=== PATIENT | male | born 1970 | race Caucasian/White ===

== ENCOUNTER 2023-01-16 11:30 | Inpatient (IN) | payer OTHER ==
[~2023-01-16] VITALS: Ht 188 cm; Wt 143.6 kg
[2023-01-16 11:59] LABS: COLLECTION METHOD CLEAN CATCH
[2023-01-16 12:03] LABS: BASO % 0.5 % (0.0-2.0); EOS # 0.1 K/mm3 (0.0-0.7); EOS % 1.3 % (0.0-4.0); GRAN # 6.7 K/mm3 (1.4-6.5); GRAN % 76.3 % (42.2-75.2); HEMATOCRIT 39.3 % (42.0-52.0); HEMOGLOBIN 13.1 g/dl (13.5-18.0); LYMPH # 1.2 K/mm3 (1.2-3.4); LYMPH % 13.2 % (20.0-51.0); MEAN CELL VOLUME 85 fl (80.0-100.0); MEAN CORPUSCULAR HEMOGLOBIN 28 pg (27-31); MEAN CORPUSCULAR HGB CONC 33 g/dl (33.0-37.0); MEAN PLATELET VOLUME 9.3 fl (7.4-10.4); MONO # 0.7 K/mm3 (0.1-0.6); MONO % 8.1 % (1.7-9.3); PLATELET COUNT 449 K/mm3 (130-400); RED BLOOD COUNT 4.62 M/mm3 (4.20-5.60); REDCELL DISTRIBUTION WIDTH-CV 12.3 % (11.5-14.5)
[2023-01-16 12:08] LABS: MUCOUS Present (NOT PRESENT); SQUAMOUS EPITHELIAL None Seen /hpf (0-10); URINE BACTERIA Rare /hpf (NONE SEEN); URINE RBC 20-50 /hpf (0-2)
[2023-01-16 12:09] LABS: URINE APPEARANCE Clear (CLEAR/HAZY); URINE BLOOD 2+ (NEGATIVE); URINE COLOR Yellow (YELLOW); URINE GLUCOSE Negative (NEGATIVE); URINE KETONE Negative (NEGATIVE); URINE NITRATE Negative (NEGATIVE); URINE PROTEIN(semi-quant) 3+ (NEGATIVE); URINE UROBILINOGEN 0.2 E.U/dL (0.2-1.0)
[2023-01-16 12:21] LABS: INR 1.4 (0.8-3.0); PROTHROMBIN TIME 15.6 SECONDS (9.7-12.8)
[2023-01-16 12:24] LABS: ALBUMIN 3.5 gm/dL (3.5-5.0); BILIRUBIN,TOTAL 0.3 mg/dL (0.2-1.2); CALCIUM 10.1 mg/dL (8.4-10.2); CREATININE, serum 2.11 mg/dL (0.72-1.25); POTASSIUM 4.6 mmol/L (3.5-4.5); TOTAL PROTEIN 8.5 gm/dL (6.2-8.1)
[2023-01-16] MEDS ORDERED: TYLENOL 500MG500 MG PO (16:43)
[2023-01-16] MEDS ORDERED: LEVAQUIN 750MG750 M1 PO (16:43)
[2023-01-16] MEDS ORDERED: PRINIVIL40 MG PO (16:44)
[2023-01-16] MEDS ORDERED: NORVASC 10MG10 MG PO (16:44)
[2023-01-16] MEDS ORDERED: TOPROL XL 50MG50 MG PO (16:45)
[2023-01-16] MEDS ORDERED: GAS RELIEF 8080 MG PO (16:45)
[2023-01-16] MEDS ORDERED: NICODERM C7 MG/PATCH TD (16:45)
[2023-01-16 20:10] VITALS: BP 124/72; PULSE 76; TEMP 98.8
[2023-01-16 23:15] VITALS: BP 111/74; PULSE 79; TEMP 98.2
--- NOTE | 2023-01-17 02:28 | NUR ---
PT ARRIVED TO THE FLOOR AROUND 2009. PT RESTING IN BED COMFORTABLY, VITAL SIGNS WITHIN NORMAL LIMITS, PT DENIES ANY PAIN AT THIS TIME. ASSESSMENT QUESTIONS AND PHYSICAL ASSESSMENT ALONG WITH ADMISSION QUESTIONS COMPLETE AT THIS TIME, ( CHARTED LATER ) PT IS ALERT AND ORIENTED, PT DOES NOT APPEAR TO HAVE ANY SKIN BREAKDOWN OR OPEN WOUNDS. PTS BELLY IS FIRM AND PT DOES HAVE SOME TENDERNESS TO TOUCH. BUT DOES HOWEVER DENY ANY PAIN AT THIS TIME. ROMERO CATH IN PLACE, PLACED IN ER. NO NEW REQUESTS AT THIS TIME, PT RESTING COMFORTABLY IN BED.
[2023-01-17 04:07] VITALS: BP 118/71; PULSE 79; TEMP 98.4
[2023-01-17 07:02] LABS: BASO % 0.6 % (0.0-2.0); EOS # 0.2 K/mm3 (0.0-0.7); EOS % 2.3 % (0.0-4.0); GRAN # 4.7 K/mm3 (1.4-6.5); GRAN % 69.7 % (42.2-75.2); LYMPH # 1.1 K/mm3 (1.2-3.4); LYMPH % 16.8 % (20.0-51.0); MEAN CELL VOLUME 86 fl (80.0-100.0); MEAN CORPUSCULAR HGB CONC 33 g/dl (33.0-37.0); MEAN PLATELET VOLUME 9.7 fl (7.4-10.4); MONO # 0.7 K/mm3 (0.1-0.6); MONO % 10.1 % (1.7-9.3); REDCELL DISTRIBUTION WIDTH-CV 12.4 % (11.5-14.5)
[2023-01-17 07:12] LABS: ALBUMIN 2.7 gm/dL (3.5-5.0); CALCIUM 8.8 mg/dL (8.4-10.2); CREATININE, serum 1.95 mg/dL (0.72-1.25); MAGNESIUM 2.1 mg/dL (1.6-2.6); PHOSPHOROUS 3.3 mg/dL (2.3-4.7); POTASSIUM 4.3 mmol/L (3.5-4.5)
[2023-01-17 07:16] LABS: HEMATOCRIT 31.7 % (42.0-52.0); HEMOGLOBIN 10.6 g/dl (13.5-18.0); MEAN CORPUSCULAR HEMOGLOBIN 29 pg (27-31); PLATELET COUNT 340 K/mm3 (130-400)
[2023-01-17 07:24] VITALS: BP 120/70; PULSE 76; TEMP 98.5
[2023-01-17 11:32] VITALS: BP 138/87; PULSE 74; TEMP 98.6
--- NOTE | 2023-01-17 12:23 | NUR ---
Initial visit: Melter Assistant went by room on rounds. Pt was resting and content with family in the room. Pt appreciated the visit. Pt has no needs right now. Melter Assistant will follow up as needed.
--- NOTE | 2023-01-17 14:56 | NUR ---
Journeyman Pipefitter met with patient to discuss discharge planning. Patient lives outside of [place], [place] with his Kirsty Calderon (ph#[phone]) who is at bedside. Patient is currently seeing Dr. Martinez for primary care, however patient and Kirsty Calderon are not very happy with Dr. Martinez's care and may be looking at changing providers. Patient is normally independent with ADLS and plans to return home at time of discharge. OT worked with patient and recommend home. Discharge Plan: Home
[2023-01-17 15:34] VITALS: BP 132/81; PULSE 75; TEMP 98.2
[2023-01-17 20:06] VITALS: BP 125/77; PULSE 77; TEMP 98.6
--- NOTE | 2023-01-17 20:53 | NUR ---
pt resting in bed. denies pain. lópez to felicia rodriguez yellow urine output. 24 hr urine started at 1600, urine on ice. fluids and abx infusing into right ac. pt requesting nicotine patch, applied to YONATHAN. pt denies any other needs. call light in reach.
[2023-01-18] VITALS (7 sets, daily range): BP systolic 123–136; BP diastolic 64–86; PULSE 66–90; TEMP 97.6–98.5
[2023-01-18 06:56] LABS: BASO % 0.3 % (0.0-2.0); EOS # 0.2 K/mm3 (0.0-0.7); EOS % 3.6 % (0.0-4.0); GRAN # 4.2 K/mm3 (1.4-6.5); GRAN % 67.1 % (42.2-75.2); HEMOGLOBIN 10.9 g/dl (13.5-18.0); LYMPH # 1.1 K/mm3 (1.2-3.4); LYMPH % 17.6 % (20.0-51.0); MEAN CELL VOLUME 86 fl (80.0-100.0); MEAN CORPUSCULAR HEMOGLOBIN 29 pg (27-31); MEAN CORPUSCULAR HGB CONC 34 g/dl (33.0-37.0); MEAN PLATELET VOLUME 9.7 fl (7.4-10.4); MONO # 0.7 K/mm3 (0.1-0.6); MONO % 10.8 % (1.7-9.3); PLATELET COUNT 347 K/mm3 (130-400); RED BLOOD COUNT 3.73 M/mm3 (4.20-5.60); REDCELL DISTRIBUTION WIDTH-CV 12.5 % (11.5-14.5)
[2023-01-18 07:01] LABS: HEMATOCRIT 32.2 % (42.0-52.0)
[2023-01-18 07:10] LABS: ALBUMIN 2.6 gm/dL (3.5-5.0); CALCIUM 8.9 mg/dL (8.4-10.2); CREATININE, serum 1.95 mg/dL (0.72-1.25); MAGNESIUM 2.1 mg/dL (1.6-2.6); PHOSPHOROUS 3.9 mg/dL (2.3-4.7); POTASSIUM 4.1 mmol/L (3.5-4.5)
[2023-01-18 08:38] LABS: KAPPA FREE LIGHT CHAIN-SERUM 56.53 mg/L (()); KAPPA LAMBDA RATIO 1.52 ratio (()); LAMDA FREE LIGHT CHAIN SERUM 37.26 mg/L (())
--- NOTE | 2023-01-18 09:04 | NUR ---
PATIENT REPORTS NO LABS HAVE BEEN DRAWN IN APPROXIMATELY 8+ YEARS. NO BASELINE CREATININE TO GO FROM.
--- NOTE | 2023-01-18 09:07 | NUR ---
PATIENT ALERT AND ORIENTED X4. VSS. PATIENT HERE FOR TESTICULAR MASS/URINARY RETENTION. ROMERO TO DD WITH YELLOW OUTPUT. 24 HOUR URINE RUNNING. URINE ON ICE. ASSESSMENT PERFORMED. AM MEDS ADMINISTERED. SLOW ZOSYN AND NS RUNNING AT 100/HOUR IN RIGHT AC. PATIENT RESTING IN BED WITH CALL LIGHT NEAR.
--- NOTE | 2023-01-18 21:39 | NUR ---
Patient doing crossword puzzle, head to toe assessment done, denies pain or discomfort, still with lópez catheter draining well with clear yellow urine, denies further needs, call light and personal items within reach, will continue to monitor.
[2023-01-19 03:28] VITALS: BP 124/83; PULSE 69; TEMP 97.5
[2023-01-19 06:36] LABS: BASO # 0.1 K/mm3 (0.0-0.2); BASO % 0.8 % (0.0-2.0); EOS # 0.3 K/mm3 (0.0-0.7); EOS % 4.1 % (0.0-4.0); GRAN % 63.3 % (42.2-75.2); LYMPH # 1.4 K/mm3 (1.2-3.4); LYMPH % 22.3 % (20.0-51.0); MEAN CELL VOLUME 87 fl (80.0-100.0); MEAN CORPUSCULAR HEMOGLOBIN 29 pg (27-31); MEAN CORPUSCULAR HGB CONC 33 g/dl (33.0-37.0); MEAN PLATELET VOLUME 9.4 fl (7.4-10.4); MONO # 0.6 K/mm3 (0.1-0.6); MONO % 8.7 % (1.7-9.3); PLATELET COUNT 366 K/mm3 (130-400); RED BLOOD COUNT 3.86 M/mm3 (4.20-5.60); REDCELL DISTRIBUTION WIDTH-CV 12.4 % (11.5-14.5)
[2023-01-19 06:37] LABS: HEMATOCRIT 33.5 % (42.0-52.0)
[2023-01-19 06:49] LABS: ALBUMIN 2.7 gm/dL (3.5-5.0); CALCIUM 9.2 mg/dL (8.4-10.2); CREATININE, serum 1.83 mg/dL (0.72-1.25)
[2023-01-19 07:47] VITALS: BP 113/69; PULSE 68; TEMP 97.8
--- NOTE | 2023-01-19 08:08 | NUR ---
PATIENT ALERT AND ORIENTED X4. VSS. PATIENT HERE FOR TESTICULAR MASS/URINARY RETENTION/INGUINAL HERNIA. PATIENT DENIES ANY PAIN AT THIS TIME. IV TO RIGHT AC WITH NS RUNNING AT 100ML/HOUR AND SLOW ZOSYN. ROMERO TO DD WITH YELLOW OUTPUT. ASSESSMENT PERFORMED. AM MEDS ADMINISTERED. PATIENT DENIES ANY FURTHER NEEDS. CALL LIGHT IN REACH.
[2023-01-19] MEDS ORDERED: LEVAQUIN 5500 MG/TA1 PO (11:58)
[2023-01-19] MEDS ORDERED: FLAGYL500 MG PO (11:59)
[2023-01-19] MEDS ORDERED: NORCO 325 MG-51 TAB PO (12:04)
[2023-01-19 12:16] VITALS: BP 130/54; PULSE 54; TEMP 97.8
--- NOTE | 2023-01-19 14:09 | NUR ---
DISCHARGE INSTRUCTIONS PROVIDED. PATIENT EDUCATION GIVEN ON ROMERO CATH CARE, LEG BAG CARE AND DAILY CLEANSING. FOLLOW UP APPOINTMENTS DISCUSSED. IV DC'D. PATIENT AND FAMILY DENY ANY QUESTIONS OR CONCERNS. PATIENT AND BELONGINGS ESCORTED OUT VIA WHEELCHAIR.
[2023-01-22 08:58] LABS: A/G RATIO (PEP) 0.68 (())
[2023-01-23 12:21] LABS: URINE HOURS (UPEP) 24 h (())
[2023-01-23 19:59] LABS: URINE PROTEIN 24HR (UPEP) 400 mg/24 h (<229)
[2023-01-25 07:21] LABS: URINE A/G RATIO 24HR (UPEP) 0.41 (())
== END 2023-01-19 14:10 | disposition home or self-care (01) | DRG 394 ==
LOC: COL.ER 11:30 → SURG 15:29 → EDBEDREQ 17:56 → SURG 21:00
PROVIDERS: Internal Medicine; Internal Medicine Nephrology; Nurse Practitioner; Urology; ADMIT Internal Medicine
PROC: 0TJB8ZZ Inspection of Bladder, Via Natural or Artificial Opening Endoscopic (ICD-10-PCS; principal; 2023-01-17 16:30)
DX: K40.90 Unilateral inguinal hernia, without obstruction or gangrene, not specified as recurrent (principal); N13.6 Pyonephrosis; N17.9 Acute kidney failure, unspecified; Q60.0 Renal agenesis, unilateral; Z68.41 Body mass index [BMI] 40.0-44.9, adult; I10 Essential (primary) hypertension; I48.91 Unspecified atrial fibrillation; N50.812 Left testicular pain; E66.9 Obesity, unspecified; D64.9 Anemia, unspecified; E83.52 Hypercalcemia; Z79.899 Other long term (current) drug therapy; Z79.01 Long term (current) use of anticoagulants
CPT/HCPCS: J2270; J2543; J3370; J7030; J7040

== ENCOUNTER 2023-01-22 12:01 | Day surgery (SDC) | payer OTHER ==
[2023-01-22] VITALS (9 sets, daily range): BP systolic 105–125; BP diastolic 65–78; PULSE 66–81; TEMP 97.7–98.1
[~2023-01-22] VITALS: Ht 188 cm; Wt 141.8 kg
[~2023-01-22 12:01] MED LIST: FLAGYL500 MG PO; GAS RELIEF 8080 MG PO; LEVAQUIN 5500 MG/TA1 PO; LEVAQUIN 750MG750 M1 PO; NICODERM C7 MG/PATCH TD; NORCO 325 MG-51 TAB PO; NORVASC 10MG10 MG PO; PRINIVIL40 MG PO; TOPROL XL 50MG50 MG PO; TYLENOL 500MG500 MG PO
[2023-01-22] MEDS ORDERED: LEVAQUIN 750MG750 M1 PO (13:02)
[2023-01-22 19:35] LABS: HEMOGLOBIN 11.5 g/dl (13.5-18.0); MEAN CELL VOLUME 85 fl (80.0-100.0); MEAN CORPUSCULAR HEMOGLOBIN 29 pg (27-31); MEAN CORPUSCULAR HGB CONC 34 g/dl (33.0-37.0); PLATELET COUNT 339 K/mm3 (130-400); RED BLOOD COUNT 3.99 M/mm3 (4.20-5.60); REDCELL DISTRIBUTION WIDTH-CV 12.9 % (11.5-14.5)
[2023-01-22 19:38] LABS: HEMATOCRIT 33.8 % (42.0-52.0)
[2023-01-22 19:49] LABS: CALCIUM 9.6 mg/dL (8.4-10.2); CREATININE, serum 2.3 mg/dL (0.72-1.25); POTASSIUM 4.9 mmol/L (3.5-4.5)
--- NOTE | 2023-01-22 20:00 | NUR ---
PATIENT IS ALERT, HAS LIMITED COMMUNICATION SKILLS. PATIENT MOSTLY GRUNTS BUT WILL OCCATIONAL SAY SOMETHING OR ANSWER NURSING. PATIENT IS OTHERWISE CONFUSED. PATIENT IS A QUAD, TOTAL LIFT PATIENT FOR APPROX 20 YEARS. PT/OT/ST CONSULTED. NOTED SEVERAL CHRONIC PRESSURE ULCERS, SEE CHARTING. PATIENT ON AIRMATRESS, HEEL PROTECTORS TO BLE. CHRONIC SUPER PUBIC ROMERO TO DD. LEFT UPPER ARM PICC WITH IV ABX INFUSING. HS MEDS GIVEN A FEW AT A TIME, PATIENT TOLERATED WELL. COLOSTOMY INTACT. HEAD TO TOE ASSESSMENT COMPLETE. HS MEDS GIVEN INCLUDING SCHEDULED NARCOTICS. VSS ON TELE. HEAD TO TOE ASSESSMENT COMPLETE. CALL LIGHT IN REACH. BED ALARM ON.
--- NOTE | 2023-01-22 20:05 | NUR ---
PATIENT ADMITED INTO ROOM 349 POST OP. ORIENTED BUT DROWSY. VSS. 02 @ 2L PER NC WITH SATS IN MID TO UPPER 90'S. PATIENT HAS HX OF APNEA AND SMOKING. NO C/O PAIN OR N/V AT THIS TIME. IV FLUIDS INFUSING INTO LEFT HAND. CLEAR LIQUID DIET. ROMERO TO DD. ABD LAP SITES X4 ARE CD&I WITH BANDAIDS. SMALL MIDLINE IS CD&I WITH GAUZE. RIAN DRAIN TO COMPRESSION WITH SCANT AMOUNTS OF DRAINAGE NOTED. HEAD TO TOE ASSESSMENT COMPLETE. SCD'S TO BLE. AT BEDSIDE BUT LEAVING FOR EVENING. ORIENTED TO ROOM. CALL LIGHT IN REACH.
[2023-01-22 20:09] LABS: BAND 7 % (0-10); LYMPHOCYTE 3 % (20.0-51.0); NEUTROPHILS 89 % (42.0-75.2); PLATELET ESTIMATE NORMAL (NORMAL)
--- NOTE | 2023-01-22 21:45 | NUR ---
PATIENT C/O ABD PAIN AND REQUESTING SOMETHING FOR PAIN. NO POST OP PAIN MEDS ORDERED EXCEPT IN PACU. PROVIDER CALLED, SEE MAR. GAVE TG FERRERA.
[2023-01-23 03:48] VITALS: BP 120/74; PULSE 77; TEMP 98
[2023-01-23 06:58] LABS: ALBUMIN 3.2 gm/dL (3.5-5.0); BILIRUBIN,TOTAL 0.3 mg/dL (0.2-1.2); CALCIUM 9.5 mg/dL (8.4-10.2); CREATININE, serum 2.1 mg/dL (0.72-1.25); POTASSIUM 5.1 mmol/L (3.5-4.5)
[2023-01-23 07:43] VITALS: BP 127/74; PULSE 71; TEMP 97.6
--- NOTE | 2023-01-23 08:39 | NUR ---
PATIENT ALERT AND ORIENTED X4. VSS. PATIENT HERE FOR ROBOTIC INGUINAL HERNIA REPAIR/UMBILICAL HERNIA, URETERAL REIMPLANTATION. PATIENT REPORTS PAIN THROUGHOUT ENTIRE ABDOMEN, RATING 7/10. LAP SITES X4, CDI WITH BANDAID. SMALL MIDLINE WITH GAUZE/TAPE, MINIMAL DRAINAGE. NICODERM PATCH PLACED ON LEFT UPPER ARM. ROMERO TO DD WITH YELLOW OUTPUT. RIAN DRAIN WITH SCAN OUTPUT, ONLY IN TUBING NOT BULB. PATIENT ON RA. IV TO LEFT HAND INT. PATIENT RESTING IN BED WITH CALLL LIGHT NEAR.
[2023-01-23] MEDS ORDERED: NORCO 325 MG-51 TAB PO (09:06)
[2023-01-23] MEDS ORDERED: COLACE 100100 MG/CAP PO (09:06)
--- NOTE | 2023-01-23 10:21 | NUR ---
RIAN DRAIN DC'D. DRESSING APPLIED. PATIENT TOLERATED.
[2023-01-23 12:48] VITALS: BP 110/60; PULSE 92; TEMP 98.5
[2023-01-23 13:44] LABS: CALCIUM 9.3 mg/dL (8.4-10.2); CREATININE, serum 2.53 mg/dL (0.72-1.25); POTASSIUM 4.2 mmol/L (3.5-4.5)
--- NOTE | 2023-01-23 14:30 | NUR ---
POTASSIUM CHECK WAS 4.2 DOWN FROM 5.1. LAB CALLED TO [facility]. PATIENT TO DISCHARGE.
--- NOTE | 2023-01-23 15:07 | NUR ---
DISCHARGES INSTRUCTIONS PROVIDED. PATIENT EDUCATION GIVEN. IV DC'D. FOLLOW UP APPOINTMENTES DISCUSSED. MEDICATIONS REVIEWED. ROMERO CATH CARE EDUCATION REITERATED. PATIENT DENIES ANY QUESTIONS OR CONCERNS. PATIENT AND BELONGINGS ESCORTED OUT.
== END 2023-01-23 15:09 | disposition home or self-care (01) ==
LOC: SDCO 12:01 → SURG 20:05 → SDCO 01-23 15:09
PROVIDERS: Urology
DX: K40.30 Unilateral inguinal hernia, with obstruction, without gangrene, not specified as recurrent (principal); K42.9 Umbilical hernia without obstruction or gangrene; N13.8 Other obstructive and reflux uropathy; D17.6 Benign lipomatous neoplasm of spermatic cord; F17.220 Nicotine dependence, chewing tobacco, uncomplicated
CPT/HCPCS: OP; A4314; A9284; C1769; C1781; C2617; J0690; J1100; J1650; J1940; J2370; J2405; J2704; J3010; J7120

== ENCOUNTER → 2023-02-06 | Outpatient (CLI) | payer OTHER ==
[~2023-02-06] MED LIST changes: +COLACE 100100 MG/CAP PO
== END ==
LOC: COL.RAD 08:29
DX: N13.1 Hydronephrosis with ureteral stricture, not elsewhere classified (principal)
CPT/HCPCS: Q9967